=== PATIENT | female | born 1975 | race Caucasian/White ===

== ENCOUNTER → 2020-11-19 00:24 | Outpatient (CLI) | payer BC, SELFPAY ==
[2020-11-19 19:28] LABS: SARS-CoV-2 RNA PCR Negative
== END ==
PROVIDERS: Visit Provider Obstetrics & Gynecology
DX: Z01.812 Encounter for preprocedural laboratory examination (principal); Z20.822 Contact with and (suspected) exposure to COVID-19
CPT/HCPCS: C9803; U0003; U0005

== ENCOUNTER 2020-11-22 01:47 | Day surgery (SDC) | payer BC, SELFPAY ==
[2020-11-12 10:50] VITALS: BMI 29.9
[2020-11-22] VITALS (7 sets, daily range): BP systolic 111–150; BP diastolic 73–83; PULSE 62–84; RESP 12–16; TEMP 35.9–36.7; O2SAT 98–100
--- NOTE | 2020-11-22 07:00 | WPDANESEPP ---
Anes - Eval Pre Procedure Procedure: Operation Date: 11/22/20 08:30 Proposed Procedures p Trans Obturator Taping With Possible Anterior Repair - Stephan Cardozo MD Date/Time: 11/22/20 07:00 Pre Op Diagnosis: stress incontinence Patient Data Age: 45 Gender: F Height: 5 ft 5 in Weight: 81.6 kg Allergies Allergy/AdvReac Type Severity Reaction Status Date / Time Penicillins Allergy Unknown Unknown Verified 11/22/20 06:59 Home Medications Medication Instructions Recorded Confirmed Type cholecalciferol (vitamin D3) 75 mcg PO DAILY 11/12/20 11/12/20 History [Vitamin D3] Patient hx anesthesia problems: none Family hx anesthesia problems: none PMFSH Past Medical History Medical History Cubital tunnel syndrome of both upper extremities GERD (gastroesophageal reflux disease) RIVERA (stress urinary incontinence, female) Family History Family History Sibling Family history of hypothyroidism Social History Social History Smoking status: Never smoker Alcohol intake: current Drinks per week: 4 Substance use: never Substance use type: does not use Living arrangements: with family Spiritual care concerns: Yes (NO BLOOD PRODUCTS) Exam Day of Procedure 11/22/20 07:00 Patient weight: overweight Heart: regular rate and rhythm Lungs: clear to auscultation Airway: Mallampati scale class II Neurological: alert and oriented
[2020-11-22] MEDS: ACETAMINOPHEN 500 MG TABLET 1000 MG PO (07:20)
[2020-11-22] MEDS: KETOROLAC 15 MG/ML VIAL (*BKC) IV PUSH (07:20)
[2020-11-22] MEDS: LACTATED RINGERS 1,000 ML 30 ML IV CONT ×2 (07:20→10:40)
--- NOTE | 2020-11-22 07:36 | PM.HPGS ---
History of Present Illness History of Present Illness Consent: Risks, benefits, and alternatives have been discussed and questions answered. Patient agrees to proceed with procedure. Chief complaint: stress incontinence Narrative: Leeanne Tse is a 45 year old female presented to the office with complaints of leaking urine with activities and coughing. Patient reports this has worsened over the years. Review of Systems Genitourinary: Genitourinary: Reports no additional female genitourinary complaints Musculoskeletal: Musculoskeletal: Reports arthralgias PMFSH Past Medical History Medical History (Updated 11/22/20 @ 07:43 by Stephan Cardozo MD) Cubital tunnel syndrome of both upper extremities GERD (gastroesophageal reflux disease) RIVERA (stress urinary incontinence, female) Surgical History Surgical History (Updated 11/22/20 @ 07:41 by Stephan Cardozo MD) S/P hysterectomy Family History Family History Sibling Family history of hypothyroidism Social History Social History Smoking status: Never smoker Alcohol intake: current Drinks per week: 4 Substance use: never Substance use type: does not use Living arrangements: with family Spiritual care concerns: Yes (NO BLOOD PRODUCTS) Meds Home Medications and Allergies Home Medications Medication Instructions Recorded Confirmed Type cholecalciferol (vitamin D3) 75 mcg PO DAILY 11/12/20 11/12/20 History [Vitamin D3] Allergies Allergy/AdvReac Type Severity Reaction Status Date / Time Penicillins Allergy Unknown Unknown Verified 11/22/20 06:59 Exam Const: General: healthy appearing Orientation/consciousness: patient oriented x3 Resp: Effort & Inspection: normal respiratory effort Auscultation: clear to auscultation bilaterally Cardio: Rate: regular rate Rhythm: regular rhythm GI: GI Palp: Yes Soft to palpation : Speculum Exam - Vagina: normal appearance of the vagina Bimanual exam- vagina & uterus: uterus absent Assessment and Plan Assessment and plan (1) RIVERA (stress urinary incontinence, female): Code(s): N39.3 - Stress incontinence (female) (male) Status: Acute Assessment and Plan: Patient scheduled for a Transobturator taping with cystoscopy with possible anterior repair. Risk and benefits reveiwed with patient in detail including bleeding, infection, trauma, anesthesia, mesh erosion and pain. Patient agrees to proceed with surgery.
--- NOTE | 2020-11-22 07:37 | WPDANESEPPF ---
Anes - Initial Pre Proc Eval Procedure: Operation Date: 11/22/20 08:30 Proposed Procedures p Trans Obturator Taping With Possible Anterior Repair - Stephan Cardozo MD Date/Time: 11/22/20 07:37 Surgeon: Stephan Cardozo MD Pre Op Diagnosis: stress incontinence Patient Data Age: 45 Gender: F Height: 5 ft 5 in Weight: 81.6 kg Allergies Allergy/AdvReac Type Severity Reaction Status Date / Time Penicillins Allergy Unknown Unknown Verified 11/22/20 06:59 Home Medications Medication Instructions Recorded Confirmed Type cholecalciferol (vitamin D3) 75 mcg PO DAILY 11/12/20 11/12/20 History [Vitamin D3] Patient hx anesthesia problems: none Family hx anesthesia problems: none PMFSH Past Medical History Medical History Cubital tunnel syndrome of both upper extremities GERD (gastroesophageal reflux disease) RIVERA (stress urinary incontinence, female) Family History Family History Sibling Family history of hypothyroidism Social History Social History Smoking status: Never smoker Alcohol intake: current Drinks per week: 4 Substance use: never Substance use type: does not use Living arrangements: with family Spiritual care concerns: Yes (NO BLOOD PRODUCTS) Anes - Eval Final PreProcedure Day of Procedure 11/22/20 07:37 Patient weight: overweight Heart: regular rate and rhythm Lungs: clear to auscultation Airway: Mallampati scale class II Neurological: alert and oriented Last oral intake: >/= 8 hours ASA classification: II Emergent: no Anesthetic plan: proceed Anesthesia type and monitoring: general LMA and standard monitoring Informed Consent: The patient's anesthetic plan and its attendant risks and benefits were discussed with the patient/family/POA. Questions were solicited and answers provided to the satisfaction of the patient/family/POA.
--- NOTE | 2020-11-22 07:50 | WPDHPUPDATE1 ---
History and Physical Update Update Date/Time: 11/22/20 07:50 History and Physical has been reviewed, including an updated exam of the patient. There are NO changes in the patient's condition. Risks, benefits, and alternatives have been discussed and questions answered. Patient agrees to proceed with procedure.
[2020-11-22] MEDS: ceFAZolin 2 GM/D5W 50 ML 2 GM/50 ML BAG IVPB (08:08)
[2020-11-22] MEDS: LIDO 1%/EPINEPHRINE 1:100,000 50 ML VIAL INFILTRATE (08:28)
--- NOTE | 2020-11-22 09:38 | SUR.PHASEI ---
Called Dr. Cardozo on her cell phone to address some questions in relation to discharge.
--- NOTE | 2020-11-22 09:51 | SUR.PHASEI ---
CORY paged Dr. Cardozo via pager.
[2020-11-22] MEDS: oxyCODONE HCL (*CRX) 5 MG TAB IR PO (10:38)
--- NOTE | 2020-11-23 08:07 | PM.PROC ---
Procedure Note - Detailed Date of procedure: 11/22/20 Pre-op diagnosis: stress incontinence Cystocele Post-op diagnosis: same Procedure performed: Anterior repair with Transobturator taping with Cystocele Description of procedure: .Patient was taken to the operating room and placed in a dorsal lithotomy position. The patient was prepared and draped in a normal sterile fashion. Volar plaster Benitez catheter was placed into the bladder and the bladder was drained for 100cc. A solution of 1% lidocaine with epinephrine was in the trade on the anterior vaginal mucosa midline a small incision was made and the vaginal mucosa at the vaginal vault. Then the Metzenbaum scissors were then used to the rectum because of the thick cystocele and cut the vaginal mucosa in the midline the cut edges were held and splayed laterally with a series of Allis clamps. The bladder was dissected away along the lateral edges with the combination of short and blunt dissection exposing the vesicle vaginal space a series of 2 Ethibond suture interrupted were then placed sequentially along the lateral poles of the vesicle vaginal space and brought together to tuck the bladder back while simultaneously bringing the lateral vaginal tissue is to get a the excess vaginal mucosa was then trimmed and the vaginal Gyne was then closed with a running lock of 2 0 Vicryl suture. attention was then turned to the bladder sling and which 2 Allis clamps were placed along the anterior vaginal wall beginning 1cm below the urethra and 3cm apart vertically a 2cm incision was made between Allis clamps on anterior vaginal mucosa in the periurethral tissue was dissected with the Metzenbaum scissors and blunt dissection to the level of the pubic bone on either side the midline. The obturator foramen on the right portions of the vagina well palpated bilaterally and injected with 1% lidocaine with epinephrine. And marked with a sterile marker. Stab incision was made in both areas. The obturator device hook was then introduced through the outer obturator foramen through the membrane entering alongside the bladder and urethra pushing the bladder and urethra out of the way and exiting through the vagina. The same procedure occurred on the left side. Cystoscope was performed with the 70 degree scope and the bladder dome was noted the posterior portion of the bladder with no visual suture noted. the obturator devices were manipulated and no areas of punctation were noted in the bladder ritter bilaterally. And there were bilateral ureteral jets noted with an intact urethra. The cystoscope was removed. The vaginal taping was attached to the obturator removed and pulled through under proper tension with spacing with Riley scissors. the vaginal mucosa was then closed with 2 0 Vicryl suture in a running locked fashion. The stab wound incisions were covered with surgical glue. The vagina was packed Anesthesia: GLMA Surgeon: Stephan Cardozo MD Estimated blood loss (mL): 75 Urine output (mL): 100 Drains: No Packing: Yes Condition: stable Disposition: PACU Findings: bilateral ureter jets.
== END 2020-11-22 11:25 | disposition home or self-care (01) ==
PROVIDERS: Visit Provider Obstetrics & Gynecology
PROC: (CPT 57288; principal; 2020-11-22 08:30)
DX: N39.3 Stress incontinence (female) (male) (principal); N81.10 Cystocele, unspecified
CPT/HCPCS: 57288; 57240; A9270; C1771; C9803; J0690; J1100; J1170; J1885; J2250; J2405; J2704; J3010; J7030; J7120; U0003; U0005

== ENCOUNTER 2020-11-30 01:28 | Day surgery (SDC) | payer BC, SELFPAY ==
[2020-11-29 18:37] VITALS: BMI 29.0
[2020-11-29 19:03] VITALS: BMI 29.0
--- NOTE | ~2020-11-30 | US_ITS ---
EXAMINATION: US venous doppler [facility] DATE: 11/30/2020 16:14 INDICATION: Left lower limb pain and swelling. TECHNIQUE: Grayscale ultrasound images without and with compression and Doppler ultrasound images of the left lower extremity veins were obtained. COMPARISON: None. FINDINGS: The visualized portions of left common femoral vein, profunda (deep) femoral vein, femoral vein, popl iteal vein, peroneal veins, posterior tibial veins, and greater saphenous vein outflow are patent. IMPRESSION: 1. No deep venous thrombosis. Reviewed, dictated and finalized at location A.
--- NOTE | 2020-11-30 08:59 | P.HP_ITS ---
History of Present Illness History of Present Illness Consent: Risks, benefits, and alternatives have been discussed and questions answered. Patient agrees to proceed with procedure. Chief complaint: urinary retention Narrative: Leeanne Tse is a 45 year old female underwent surgery for urinary incontinece on 11/22/20. Patient reports was able to void after sling bu retention worsened. catheter placed that afternoon and left in for 2 days. Catheter removed and allowed to void on thursday. Patient called Thursday and said return of retention(1600 cc) of urine in bladder drained on Thursday. FORMERLY [facility], [facility]–1983 Past Medical History Medical History Cubital tunnel syndrome of both upper extremities GERD (gastroesophageal reflux disease) RIVERA (stress urinary incontinence, female) Surgical History Surgical History S/P hysterectomy Family History Family History Sibling Family history of hypothyroidism Social History Social History Smoking status: Never smoker Alcohol intake: current Drinks per week: 4 Substance use: never Substance use type: does not use Living arrangements: alone Spiritual care concerns: Yes (NO BLOOD PRODUCTS) Meds Home Medications and Allergies Home Medications Medication Instructions Recorded Confirmed Type cholecalciferol (vitamin D3) 75 mcg PO DAILY 11/12/20 11/29/20 History [Vitamin D3] hydrocodone-acetaminophen 1 tablet PO Q4-6H PRN #10 tablet 11/22/20 11/29/20 Rx Allergies Allergy/AdvReac Type Severity Reaction Status Date / Time Penicillins Allergy Unknown Unknown Verified 11/29/20 18:44 Exam Const: Nutritional Appearance: obese GI: Inspection: normal to inspection : Other: suture present in vagina intact Urinary Catheter: Urinary Catheter: patent and draining and urine cloudy Assessment and Plan Assessment and plan (1) Postprocedural urinary retention: Code(s): N99.89 - Other postprocedural complications and disorders of genitourinary system; R33.8 - Other retention of urine Status: Acute Assessment and Plan: Plan to reduce tension on sling.
--- NOTE | 2020-11-30 13:07 | WPDHPUPDATE1 ---
History and Physical Update Update Date/Time: 11/30/20 13:07 History and Physical has been reviewed, including an updated exam of the patient. There are NO changes in the patient's condition. Risks, benefits, and alternatives have been discussed and questions answered. Patient agrees to proceed with procedure.
--- NOTE | 2020-11-30 13:32 | WPDANESEPPF ---
Anes - Initial Pre Proc Eval Procedure: Operation Date: 11/30/20 15:15 Proposed Procedures p Release Tension Of Urethral Sling - Stephan Cardozo MD Date/Time: 11/30/20 13:32 Surgeon: Stephan Cardozo MD Pre Op Diagnosis: urinary retention Patient Data Age: 45 Gender: F Height: 5 ft 5 in Weight: 79.3 kg Allergies Allergy/AdvReac Type Severity Reaction Status Date / Time Penicillins Allergy Unknown Unknown Verified 11/29/20 18:44 Home Medications Medication Instructions Recorded Confirmed Type cholecalciferol (vitamin D3) 75 mcg PO DAILY 11/12/20 11/29/20 History [Vitamin D3] hydrocodone-acetaminophen 1 tablet PO Q4-6H PRN #10 tablet 11/22/20 11/29/20 Rx Patient hx anesthesia problems: none Family hx anesthesia problems: none PMFSH Past Medical History Medical History Cubital tunnel syndrome of both upper extremities GERD (gastroesophageal reflux disease) Postprocedural urinary retention RIVERA (stress urinary incontinence, female) Surgical History Surgical History S/P hysterectomy Family History Family History Sibling Family history of hypothyroidism Social History Social History Smoking status: Never smoker Alcohol intake: current Drinks per week: 4 Substance use: never Substance use type: does not use Living arrangements: alone Spiritual care concerns: Yes (NO BLOOD PRODUCTS) Anes - Eval Final PreProcedure Day of Procedure 11/30/20 13:32 Patient weight: overweight Heart: regular rate and rhythm Lungs: clear to auscultation Airway: Mallampati scale class II Neurological: alert and oriented Last oral intake: >/= 8 hours ASA classification: II Emergent: no Anesthetic plan: proceed Anesthesia type and monitoring: general GIVS and standard monitoring Informed Consent: The patient's anesthetic plan and its attendant risks and benefits were discussed with the patient/family/POA. Questions were solicited and answers provided to the satisfaction of the patient/family/POA.
[2020-11-30 13:50] VITALS: BP 134/79; PULSE 91; RESP 16; TEMP 37.2; O2SAT 100
[2020-11-30] MEDS: ceFAZolin 2 GM/D5W 50 ML 2 GM/50 ML BAG IVPB (13:57)
[2020-11-30] MEDS: GENTAMICIN SULFATE INJ 335 MG in DEXTROSE 5% 100 ML 100 MG IVPB (14:19)
[2020-11-30 14:31] VITALS: BP 113/76; PULSE 72; RESP 16; O2SAT 100
[2020-11-30] MEDS: LACTATED RINGERS 1,000 ML 30 ML IV CONT ×2 (14:31→15:20)
--- NOTE | 2020-11-30 14:33 | PM.PROC ---
Procedure Note - Detailed Date of procedure: 11/30/20 Pre-op diagnosis: urinary retention Post-op diagnosis: same Procedure performed: release of tension on transobturator sling. Description of procedure: The patient was taken to the operating room with IV running and prepped and draped in a normal sterile fashion. She was placed in the dorsal lithotomy position a Benitez catheter was placed in the bladder. 5cc of local was placed in the right and left Zoila of the urethra. The suture from prior procedure was cut with scissors the vaginal mucosa was grasped with Allis clamps. A small PI was used to release the sling by introducing it behind the sling and releasing dissection. A Riley scissor was used for spacing to confirm. The vaginal mucosa was then closed with 2 0 Vicryl suture. A Benitez catheter was removed. Sponge lap and needle counts were correct x2 patient tolerated this procedure well was taken to recovery condition. Anesthesia: MAC and local Surgeon: Stephan Cardozo MD Estimated blood loss (mL): 20 Urine output (mL): 50 Drains: No Packing: No Pathology: none sent Complications: None Disposition: PACU
[2020-11-30] MEDS: oxyCODONE HCL (*CRX) 5 MG TAB IR PO (14:59)
[2020-11-30 15:00] VITALS: BP 119/89; PULSE 66
[2020-11-30 15:30] VITALS: BP 125/91; PULSE 71
--- NOTE | 2020-11-30 15:51 | SUR.PHASEII ---
Patient left outpatient area and went to ultrasound for doppler of left leg.
[2020-11-30 16:00] VITALS: BP 132/86; PULSE 64
--- NOTE | 2020-11-30 16:06 | SUR.PHASEII ---
Patient came back from ultrasound about 1605.
== END 2020-11-30 16:28 | disposition home or self-care (01) ==
PROVIDERS: Visit Provider Obstetrics & Gynecology
PROC: (CPT 57287; principal; 2020-11-30 15:15)
DX: N99.89 Other postprocedural complications and disorders of genitourinary system (principal); R33.8 Other retention of urine; Y83.8 Other surgical procedures as the cause of abnormal reaction of the patient, or of later complication, without mention of misadventure at the time of the procedure; M79.662 Pain in left lower leg; M79.89 Other specified soft tissue disorders; K21.9 Gastro-esophageal reflux disease without esophagitis; G56.23 Lesion of ulnar nerve, bilateral upper limbs
CPT/HCPCS: 57287; 93971; A9270; J0690; J1580; J2250; J2704; J3010; J7030; J7120

== ENCOUNTER → 2021-01-18 09:48 | Outpatient (CLI) | payer BC, SELFPAY ==
--- NOTE | ~2021-01-18 | MM_ITS ---
EXAMINATION: MM screening fany BI w laura HISTORY: Screening TECHNIQUE: Craniocaudal and mediolateral oblique 3-D tomosynthesis images were obtained and synthetic 2-D images were generated. CAD analysis was submitted and interpreted. COMPARISON: Comparison to multiple prior studies sequentially, with oldest reviewed study dated 07/17. BREAST PARENCHYMAL COMPOSITION: There are scattered areas of fibroglandular density. FINDINGS: Stable benign-appearing bilateral breast masses. There is no evidence of suspicious mass, c alcification, or architectural distortion to suggest malignancy in either breast. There has been no s uspicious interval change. IMPRESSION: 1. No mammographic evidence of malignancy. 2. Recommend routine screening mammography in one year. BI-RADS Category 2: Benign finding(s). Reviewed, dictated and finalized at location A.
== END ==
PROVIDERS: Visit Provider Obstetrics & Gynecology
DX: Z12.31 Encounter for screening mammogram for malignant neoplasm of breast (principal)
CPT/HCPCS: 77063; 77067

== ENCOUNTER 2021-08-05 10:26 | Emergency (ER) | payer BC, SELFPAY ==
[2021-08-05 10:36] VITALS: BP 138/92; PULSE 87; RESP 87; TEMP 36.6; O2SAT 99
--- NOTE | 2021-08-05 10:54 | ED.SKABFB ---
HPI - Skin/Abscess/Foreign Bdy General Chief complaint: Skin/Abscess/Foreign Body Stated complaint: Rash Time Seen by Provider: 08/05/21 10:54 Source: patient and RN notes reviewed Mode of arrival: ambulatory Limitations: no limitations History of Present Illness HPI narrative: 38-year-old female presents with concern for painful, itchy rash to her left back. Reports symptoms for approximately 2 days. In an unrelated complaint, she reports sinus drainage and right ear pain, right sinus tenderness. She reports symptoms are worse in the morning and improves throughout the day. Reports she had sinus problems 2 weeks ago which mostly resolved except for the continued drainage and pain on the right side. She denies fever, body aches, chills, sweats. MD complaint: rash Related Data Home Medications Medication Instructions Recorded Confirmed liraglutide (weight loss) [Saxenda] 3 mg SUBCUT DAILY 08/05/21 08/05/21 Allergies Allergy/AdvReac Type Severity Reaction Status Date / Time Penicillins Allergy Intermediate Rash Verified 08/05/21 10:59 Review of Systems Review of Systems: CONSTITUTIONAL: Denies malaise, chills, sweats, or fever. EYES: Denies visual changes, redness, or discharge. ENT: Reports right-sided rhinorrhea, congestion, sinus pain, otalgia CARDIOVASCULAR: Denies chest pain, palpitations, or edema. RESPIRATORY: Denies cough or dyspnea. SKIN: Painful itchy rash on the left back MUSCULOSKELETAL: Denies myalgia. NEUROLOGIC: Denies numbness, weakness, or headache. All systems reviewed & are unremarkable except as noted in HPI and below PMFSH Past Medical History Medical History Cubital tunnel syndrome of both upper extremities GERD (gastroesophageal reflux disease) Postprocedural urinary retention RIVERA (stress urinary incontinence, female) Surgical History Surgical History S/P hysterectomy Family History Family History Sibling Family history of hypothyroidism Social History Social History Smoking status: Never smoker Alcohol intake: current Drinks per week: 4 Substance use: never Substance use type: does not use Spiritual care concerns: Yes (NO BLOOD PRODUCTS) Comments At time of signature, agree with nursing past medical, surgical, social and family history. There is no relevant family history pertinent to the presenting complaint Exam Narrative: GENERAL: Well-appearing, well-nourished, and in no acute distress. HEAD: Normocephalic, atraumatic. EYES: PERRLA, conjunctivae clear, and EOMI. ENT: Mucous membranes moist. Oropharynx without edema, erythema or lesions. TM pearly khoury with shiny light reflex NECK: Supple. No lymphadenopathy CHEST: Clear to auscultation. No respiratory distress. HEART: Regular rate and rhythm. SKIN: Warm, dry. Zosteriform rash noted to the left back NEURO: Alert and oriented x3. PSYCH: Normal mood and affect Course Course Emergency Course: Patient is aware of diagnosis, understands and agrees to treatment plan. Anticipatory guidance given. Patient agrees to follow-up as directed and is aware of reasons to seek care at the emergency department. Portions of this record may have been created with voice recognition software Vital Signs Vital signs: Vital Signs Temperature 97.9 F 08/05/21 10:36 Pulse Rate 87 08/05/21 10:36 Respiratory Rate 87 H 08/05/21 10:36 Blood Pressure 138/92 H 08/05/21 10:36 Pulse Oximetry 99 08/05/21 10:36 Temperature 97.9 F 08/05/21 10:36 Pulse Rate 87 08/05/21 10:36 Respiratory Rate 87 H 08/05/21 10:36 Blood Pressure 138/92 H 08/05/21 10:36 Pulse Oximetry 99 08/05/21 10:36 Reviewed. Patient has been instructed to follow up with her primary care provider within the next
== END 2021-08-05 11:10 | disposition home or self-care (01) ==
PROVIDERS: Emergency Provider Nurse Practitioner
DX: B02.9 Zoster without complications (principal); J01.10 Acute frontal sinusitis, unspecified; K21.9 Gastro-esophageal reflux disease without esophagitis
CPT/HCPCS: 99213; G0463

== ENCOUNTER 2021-09-05 10:41 | Emergency (ER) | payer BC, SELFPAY ==
[2021-09-05 10:50] VITALS: BP 138/95; PULSE 99; RESP 16; TEMP 36.6; O2SAT 99
--- NOTE | 2021-09-05 12:29 | ED.URI ---
HPI - URI/Sore Throat General Chief Complaint: Upper Respiratory Infection Stated Complaint: sinus infection Time Seen by Provider: 09/05/21 12:10 Source: patient and RN notes reviewed Mode of arrival: ambulatory Limitations: no limitations History of Present Illness HPI Narrative: Patient presents today complaining of a 4-day history of sore throat, cough, congestion, fatigue. Reports multiple sick contacts of COVID-19 1 to 2 weeks ago. She currently rates her pain 5/10 and has been taking Mucinex and Claritin with ibuprofen without much relief. She has been vaccinated against COVID-19. MD elicited complaint: cough, sore throat and nasal congestion Related Data Home Medications Medication Instructions Recorded Confirmed liraglutide (weight loss) [Saxenda] 3 mg SUBCUT DAILY 08/05/21 09/05/21 Allergies Allergy/AdvReac Type Severity Reaction Status Date / Time Penicillins Allergy Intermediate Rash Verified 09/05/21 12:06 Review of Systems Review of Systems: CONSTITUTIONAL: Denies body aches, fever, chills, or sweats.+ Fatigue EYES: Denies visual changes, redness, or discharge. ENT: Denies rhinorrhea, or otalgia.+ Congestion, sore throat CARDIOVASCULAR: Denies chest pain, palpitations, or edema. RESPIRATORY: Denies dyspnea.+ Cough GASTROINTESTINAL: Denies abdominal pain, nausea, vomiting, or diarrhea. GENITOURINARY: Denies dysuria or hematuria. SKIN: Denies rash, itching, or wounds. MUSCULOSKELETAL: Denies back pain, joint pain, or myalgia. NEUROLOGIC: Denies headache, numbness, tingling, or weakness. PSYCH: Denies depression or anxiety. [facility] Past Medical History Medical History Cubital tunnel syndrome of both upper extremities GERD (gastroesophageal reflux disease) Postprocedural urinary retention RIVERA (stress urinary incontinence, female) Surgical History Surgical History S/P hysterectomy Family History Family History Sibling Family history of hypothyroidism Social History Social History Smoking status: Never smoker Alcohol intake: current Drinks per week: 4 Substance use: never Substance use type: does not use Spiritual care concerns: Yes (NO BLOOD PRODUCTS) Comments At time of signature, I have reviewed and agree with nursing past medical, surgical, social and family history unless otherwise noted. Please see nursing chart for further information. There is no relevant family history pertinent to the presenting complaint Exam Narrative: GENERAL: Well-appearing, well-nourished, and in no acute distress. HEAD: Normocephalic, atraumatic. EYES: EOMI. No redness or drainage. Conjunctivae normal. ENT: Mucous membranes pink and moist. Nares congested. No rhinorrhea. Bilateral swollen and erythematous nasal turbinates. TMs normal bilaterally. Throat normal. Uvula midline. NECK: Normal AROM. Supple. No lymphadenopathy. CHEST: No respiratory distress. Clear to auscultation. HEART: Regular rate and rhythm. No murmur appreciated. Normal peripheral pulses. EXTREMITIES: Normal range of motion. No edema. SKIN: Warm, dry, no rash. Capillary refill normal. Normal skin turgor. NEURO: No focal deficits. Alert and oriented x3. Gait steady. PSYCH: Normal affect. No signs of depression or anxiety. Course Course Level of Care: Express Care Visit Vital Signs Vital signs: Vital Signs Temperature 97.8 F 09/05/21 10:50 Pulse Rate 99 09/05/21 10:50 Respiratory Rate 16 09/05/21 10:50 Blood Pressure 138/95 H 09/05/21 10:50 Pulse Oximetry 99 09/05/21 10:50 Temperature 97.8 F 09/05/21 10:50 Pulse Rate 99 09/05/21 10:50 Respiratory Rate 16 09/05/21 10:50 Blood Pressure 138/95 H 09/05/21 10:50 Pulse Oximetry 99 09/05/21 10:50
[2021-09-06 21:55] LABS: SARS-CoV-2 RNA PCR Negative
== END 2021-09-05 12:40 | disposition home or self-care (01) ==
PROVIDERS: Emergency Provider Nurse Practitioner
DX: J06.9 Acute upper respiratory infection, unspecified (principal); Z20.822 Contact with and (suspected) exposure to COVID-19; K21.9 Gastro-esophageal reflux disease without esophagitis
CPT/HCPCS: 87426; 99213; C9803; G0463; U0003; U0005

== ENCOUNTER 2021-12-10 01:16 | Day surgery (SDC) | payer BC, SELFPAY ==
[2021-11-21 15:27] VITALS: BMI 28.6
[2021-12-10 08:14] VITALS: BP 133/84; PULSE 83; RESP 18; TEMP 36.2; O2SAT 99; BMI 29.0
[2021-12-10] MEDS: LACTATED RINGERS 1,000 ML 150 ML IV CONT (08:22)
--- NOTE | 2021-12-10 08:58 | P.CONGI_ITS ---
Assessment and Plan Assessment and plan (1) Encounter for screening colonoscopy: Code(s): Z12.11 - Encounter for screening for malignant neoplasm of colon Status: Acute Assessment and Plan: Patient presents today for screening colonoscopy. Further recommendations will be given after endoscopy. GI Consult Note Consult date/time: 12/10/21 08:58 HPI: Leeanne Tse is a 46 year old female Presents for screening colonoscopy. Patient's current weight appetite and bowel movements are normal. She denies abdominal pain. She has had no bleeding. Family history is Significant her sister was found to have a colon polyp recently. Patient presents today for neoplasia screening. Review of Systems Review of Systems: All systems reviewed & are unremarkable except as noted in HPI and below PMFSH Past Medical History Medical History Cubital tunnel syndrome of both upper extremities GERD (gastroesophageal reflux disease) Postprocedural urinary retention RIVERA (stress urinary incontinence, female) Surgical History Surgical History S/P hysterectomy Family History Family History Sibling Family history of hypothyroidism Social History Social History Smoking status: Never smoker Alcohol intake: current Drinks per week: 4 Alcohol use details: Socially Substance use: never Substance use type: does not use Living arrangements: with family Spiritual care concerns: Yes (NO BLOOD PRODUCTS) Meds Home Medications and Allergies Home Medications Medication Instructions Recorded Confirmed Type liraglutide (weight loss) [Saxenda] 3 mg SUBCUT DAILY 08/05/21 11/21/21 History Allergies Allergy/AdvReac Type Severity Reaction Status Date / Time Penicillins Allergy Intermediate Rash Verified 12/10/21 08:13 Vital Signs Vital Signs - 24 hr 12/10/21 08:14 Temperature 97.1 F L Pulse Rate 83 Respiratory Rate 18 Blood Pressure 133/84 Pulse Oximetry 99 Exam Narrative: Physical exam reveals patient to be alert. Vital signs stable. HEENT exam is unremarkable. Patient is anicteric. Lungs are clear to auscultation and percussion. Heart is without murmur or extra sounds. Abdominal exam bowel sounds present soft nontender with no organomegaly. Digital external rectal exam is normal.
--- NOTE | 2021-12-10 09:07 | P.PNAN_ITS ---
Anes - Initial Pre Proc Eval Procedure: Operation Date: 12/10/21 09:30 Proposed Procedures p Screening Colonoscopy - Xu Pat MD Date/Time: 12/10/21 09:07 Surgeon: Xu Pat MD Pre Op Diagnosis: neoplasm screening Patient Data Age: 46 Gender: F Height: 1.65 m Weight: 79.3 kg Last Vital Signs Temp 97.1 F L 12/10/21 08:14 Pulse 83 12/10/21 08:14 Resp 18 12/10/21 08:14 BP 133/84 12/10/21 08:14 Pulse Ox 99 12/10/21 08:14 Allergies Allergy/AdvReac Type Severity Reaction Status Date / Time Penicillins Allergy Intermediate Rash Verified 12/10/21 08:13 Home Medications Medication Instructions Recorded Confirmed Type liraglutide (weight loss) [Saxenda] 3 mg SUBCUT DAILY 08/05/21 11/21/21 History Patient hx anesthesia problems: none Family hx anesthesia problems: none Results Review: All pre-operative results and documents have been reviewed as part of the pre-operative evaluation. [facility] Past Medical History Medical History Cubital tunnel syndrome of both upper extremities GERD (gastroesophageal reflux disease) Postprocedural urinary retention RIVERA (stress urinary incontinence, female) Surgical History Surgical History S/P hysterectomy Family History Family History Sibling Family history of hypothyroidism Social History Social History Smoking status: Never smoker Alcohol intake: current Drinks per week: 4 Alcohol use details: Socially Substance use: never Substance use type: does not use Living arrangements: with family Spiritual care concerns: Yes (NO BLOOD PRODUCTS) Anes - Eval Final PreProcedure Day of Procedure 12/10/21 09:07 Patient weight: overweight Heart: regular rate and rhythm Lungs: clear to auscultation Airway: Mallampati scale Neurological: alert and oriented Last oral intake: >/= 8 hours ASA classification: II Emergent: no Anesthetic plan: proceed Anesthesia type and monitoring: general GIVS and standard monitoring Results Review: All pre-operative results and documents have been reviewed as part of the pre-operative evaluation. Informed Consent: The patient's anesthetic plan and its attendant risks and benefits were discussed with the patient/family/POA. Questions were solicited and answers provided to the satisfaction of the patient/family/POA.
[2021-12-10 10:12] VITALS: BP 115/77; PULSE 79; RESP 17; O2SAT 100
[2021-12-10 10:22] VITALS: BP 123/81; PULSE 68; RESP 19; O2SAT 100
[2021-12-10 10:32] VITALS: BP 123/72; PULSE 63; RESP 19; O2SAT 100
== END 2021-12-10 10:42 | disposition home or self-care (01) ==
PROVIDERS: Visit Provider Internal Medicine Gastroenterology
PROC: 0DJD8ZZ Inspection of Lower Intestinal Tract, Via Natural or Artificial Opening Endoscopic (ICD-10-PCS; CPT 45378; principal; 2021-12-10 09:30)
DX: Z12.11 Encounter for screening for malignant neoplasm of colon (principal); K64.8 Other hemorrhoids; K57.30 Diverticulosis of large intestine without perforation or abscess without bleeding
CPT/HCPCS: 45378; J2704; J7120

== ENCOUNTER 2022-02-20 08:50 | Outpatient (CLI) | payer BC, SELFPAY ==
--- NOTE | 2022-02-20 11:30 | NEURO_ITS ---
Impression: # Complains of numbness in right hand. # Subtle evolving Carpal Tunnel Syndrome. # Proximal median nerve slowing compared to ulnar nerve. # Needle/EMG exam not requested. # Clinical correlation recommended. Nerve Conduction Studies Anti Sensory Summary Table Stim Site NR Peak (ms) P-T Amp (?V) Site1 Site2 Delta-P (ms) Dist (cm) Ezekiel (m/s) Right Median Anti Sensory (2-3nd Digit) Wrist 3.4 45.8 Wrist 2-3nd Digit 3.4 14.0 41 Wrist 3.5 59.0 Wrist 2-3nd Digit 3.4 14.0 41 Right Radial Anti Sensory (Base 1st Digit) Wrist 2.3 36.9 Wrist Base 1st Digit 2.3 0.0 Right Ulnar Anti Sensory (5th Digit) Wrist 2.0 70.8 Wrist 5th Digit 2.0 14.0 70 Motor Summary Table Stim Site NR Onset (ms) O-P Amp (mV) Site1 Site2 Delta-0 (ms) Dist (cm) Ezekiel (m/s) Right Median Motor (Abd Poll Brev) Wrist 3.0 6.3 Elbow Wrist 5.8 27.0 47 Elbow 8.8 4.5 Right Ulnar Motor (Abd Dig Minimi) Wrist 2.1 6.8 A Elbow Wrist 4.9 28.0 57 A Elbow 7.0 6.3 F Wave Studies NR F-Lat (ms) L-R F-Lat (ms) Right Median (Mrkrs) (Abd Poll Brev) 27.03 Right Ulnar (Mrkrs) (Abd Dig Min) 25.63 MTDD
== END 2022-02-20 08:51 | disposition home or self-care (01) ==
LOC: ANHNEURO 08:52
PROVIDERS: Visit Provider Plastic Surgery
DX: R20.2 Paresthesia of skin (principal); R94.131 Abnormal electromyogram [EMG]
CPT/HCPCS: 95909

== ENCOUNTER → 2022-06-16 10:43 | Outpatient (CLI) | payer BC, SELFPAY ==
--- NOTE | ~2022-06-16 | MM_ITS ---
EXAMINATION: MM screening fany BI w laura HISTORY: Screening TECHNIQUE: Craniocaudal and mediolateral oblique 3-D tomosynthesis images were obtained and synthetic 2-D images were generated. CAD analysis was submitted and interpreted. COMPARISON: Comparison to multiple prior studies sequentially, with oldest reviewed study dated 10/2013. BREAST PARENCHYMAL COMPOSITION: Breast composed of scattered areas of fibroglandular density FINDINGS: There is no evidence of suspicious mass, calcification, or architectural distortion to sugg est malignancy in either breast. There has been no suspicious interval change. IMPRESSION: 1. No mammographic evidence of malignancy. 2. Recommend routine screening mammography in one year. BI-RADS Category 1: Negative Reviewed, dictated and finalized at location A.
== END ==
PROVIDERS: PCP Obstetrics & Gynecology Gynecology; Visit Provider Obstetrics & Gynecology Gynecology
DX: Z12.31 Encounter for screening mammogram for malignant neoplasm of breast (principal)
CPT/HCPCS: 77063; 77067

== ENCOUNTER 2022-06-26 15:30 | Outpatient (RCR) | payer BC, SELFPAY ==
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
--- NOTE | 2022-06-26 15:58 | PTOPPROG ---
Assessment and note entered by Shamika Yusuf, PT Evaluation Information Assessment Status Progress Diagnosis L hip pain Onset about one year Subjective Information Leeanne reports: L hip pain is annoying, throbbing, stabbing, grabs from side of hip to front of groin; pain range of 1-5/10; pain increase with more activity; avoid rotating hip out because it hurts; wake up 5-6 x/night due to hip hurting; cannot lie on her L hip very long at all-hurts; when getting in/out car, lift her leg with her arm to make it easier; problems putting her shoes and socks on; frustrated with this hip pain; feel like therapy pain treatments help a little, but do not last very long; Assessment PT Clinical Summary Leeanne has received 7 PT sessions. Compared to the initial evaluation: pain rating decreased by 1 number at the low and high ratings; reported sleeping tolerance is the same, and continues to have issues with lifting L leg in/out car and lifting L leg to put on her pants and shoe continues to have pain increase with supine hip flexion, abduction and ER motions; slight increase in strength L leg with single leg standing; Education goals were achieved. Discussed with her she needs to follow up with Dr. SHUKLA PT services. Await further orders if PT is to continue. These treatments will address the objective and functional deficits as defined above. The patient will be advanced safely and appropriately in order for the patient to progress towards his/her prior level of function. Additional exercises will be introduced and as well as a comprehensive home exercise program upon discharge, if needed, ?to ensure carryover of functional gains achieved in the clinic. This treatment plan has been reviewed and agreement upon by the patient.
--- NOTE | 2022-08-08 11:26 | PCPTNOTE ---
DISCHARGE PHYSICAL THERAPY 08-08-22 Attending Provider: Leonard Bethea MD Patient:Leeanne Tse Date of :1975 Further PT orders were not received, since the 06-26-22 reeval report, therefore she will be discharged from PT at this time. Thank you for referring Leeanne to [facility].
== END 2022-08-08 14:17 | disposition home or self-care (01) ==
LOC: ANHPT 15:30
PROVIDERS: Visit Provider Orthopaedic Surgery
DX: M25.552 Pain in left hip (principal); G89.29 Other chronic pain
CPT/HCPCS: 97014; 97110; 97140; 97161; 97530; G0283

== ENCOUNTER 2022-07-21 08:33 | Outpatient (CLI) | payer BC, SELFPAY ==
--- NOTE | ~2022-07-21 | XR_ITS ---
EXAMINATION: XR fl inj hip LT for MR/CT DATE: 07/21/2022 09:48 INDICATION: Left hip pain post injury 3 years prior TECHNIQUE: A time-out was performed to verify the patient's name, date of , and procedure to b e performed. The procedure including the risks, benefits, and alternatives was discussed with the pat ient. Risks discussed included bleeding and infection. The patient understood the risks and agreed to proceed. The skin overlying the left hip joint was prepped and draped in usual sterile fashion. An esthetic was administered with 1% lidocaine subcutaneously. A 22 G needle was advanced under fluoros copic guidance into the joint. Injection of 1 mL of Omnipaque 240 confirmed intra-articular position of the needle. Subsequently, injectate consisting of 12 mL of 2:1:1 mixture of sterile saline:Omnip aque 240:1% lidocaine mixed 200:1 with 529 mg/mL Multihance gadolinium contrast was injected with int ra-articular administration confirmed with intermittent fluoroscopy. The needle was removed and the e ntry site was cleaned and dressed. There were no immediate complications. Fluoroscopy exposure time was 0.1 minutes. The total number of images was 7. FINDINGS: Real-time fluoroscopy demonstrates the needle in the left hip joint. IMPRESSION: 1. Successful left hip joint injection of dilute gadolinium contrast mixture for subsequent MRI arthr ogram which will be dictated separately. Reviewed, dictated and finalized at location A. ING WORKER IMPRESSION: 1. Successful left hip joint injection of dilute gadolinium contrast mixture fo r subsequent MRI arthrogram which will be dictated separately.
--- NOTE | ~2022-07-21 | MR_ITS ---
EXAMINATION: MR hip LT w con DATE: 07/21/2022 10:32 INDICATION: Left hip pain 3 years post injury TECHNIQUE: Magnetic resonance (MR) arthrogram of the left hip was performed following intra-articular gadolinium contrast injection and without intravenous contrast. Details of the hip joint injection h ave been dictated separately. Sequences included small field of view of the left hip with axial and s agittal T1-weighted FS SE and T2-weighted FS FSE and coronal T1-weighted SE and T2-weighted FS FSE. Additional T1-weighted FGRE images in a radial pattern oriented orthogonal to the acetabular rim were obtained for evaluation of the labrum. COMPARISON: None. FINDINGS: Bones/labrum/cartilage: Alignment is normal. No fracture, avascular necrosis or pathologic marrow replacing process. There i s mild partial-thickness cartilage loss with smooth chondral surface and without degenerative subchon dral changes at the posterior aspect of the joint space. Very small shallow tear at the chondral labr al junction at the base of the 10:30 position of the posterior superior left acetabular labrum best a ppreciated on the T2-weighted images. Right hip is not diagnostically evaluated on the larger field-o f-view images however there is evident a more prominent tear at the base of the 12:00-11:00 position of the superolateral right acetabular labrum. Fluid: Mild increased fluid signal overlying the left greater trochanter consistent with mild trochanteric b ursitis. Physiologic amount fluid in the right hip joint. 3.3 x 2.0 x 2.6 cm loculated fluid collecti on at the left side of the introitus below level of the pubic symphysis most consistent with a Bartho adin gland cyst. Minimal likely physiologic free fluid in the pelvis. No other abnormal fluid collecti ons. Soft tissues: Moderate tendinopathy and partial tear at the distal left gluteus minimus tendon with secondary mild asymmetric atrophy of the left gluteus minimus muscle belly relative to the left. There is mild tendi nopathy of the left gluteus medius tendon with small split tear between the anterior third in the pos terior two thirds of the tendon. Mild tendinopathy without tear at the right gluteus medius tendon. T he right gluteus minimus tendon is normal. The bilateral iliopsoas and proximal hamstring tendons are normal. The uterus is not identified and has likely been surgically resected. 2.1 cm left ovarian cyst/follicle. Limited evaluation of visceral organs of the pelvis is otherwise unremarkable. No pa thologically enlarged pelvic/inguinal lymphadenopathy. IMPRESSION: 1. Mild left hip osteoarthritis with small shallow tear at the chondral labral junction at the grinding wheel dresser ior superior left acetabular labrum. 2. Slightly larger labral tear is seen along the chondral labral junction at the superolateral right acetabular labrum on the large [id number] images. 3. Moderate left gluteus minimus tendinopathy with partial thickness tear, likely chronic given the m ild asymmetric atrophy of the left gluteus minimus muscle belly relative to the right. 4. Mild tendinopathy of the bilateral gluteus medius medius tendons with small longitudinal split tea r at the left greater trochanteric insertion of the left gluteus medius tendon and overlying mild lef t trochanteric bursitis. Reviewed, dictated and finalized at location A. YSIS EQUIPMENT TECHNICIAN IMPRESSION: 1. Mild left hip osteoarthritis with small shallow tear at the chondral labral junction at the posterior superior left acetabular labrum. 2. Slightly larger labral tear is seen along the chondral labral junction at th e superolateral right acetabular labrum on the large [id number] images. 3. Moderate left gluteus minimus tendinopathy with partial thickness tear, like ly chronic given the
== END 2022-07-21 08:34 | disposition home or self-care (01) ==
PROVIDERS: Visit Provider Orthopaedic Surgery
DX: G89.29 Other chronic pain (principal); M25.552 Pain in left hip; M16.12 Unilateral primary osteoarthritis, left hip; S73.192A Other sprain of left hip, initial encounter; S76.812A Strain of other specified muscles, fascia and tendons at thigh level, left thigh, initial encounter; M71.552 Other bursitis, not elsewhere classified, left hip
CPT/HCPCS: 20610; 73722; 77002; A9577; Q9966

== ENCOUNTER 2022-09-08 08:03 | Outpatient (RCR) | payer BC, SELFPAY ==
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
== END 2022-09-08 13:23 | disposition home or self-care (01) ==
LOC: ANHPT 08:03
PROVIDERS: PCP Family Medicine
DX: M25.552 Pain in left hip (principal); M70.62 Trochanteric bursitis, left hip
CPT/HCPCS: 97110; 97161

== ENCOUNTER 2023-04-27 16:25 | Emergency (ER) | payer BC, SELFPAY ==
[2023-04-27 16:39] VITALS: BP 154/99; PULSE 79; RESP 16; TEMP 36.8; O2SAT 100
--- NOTE | 2023-04-27 17:13 | ED.URI ---
HPI - URI/Sore Throat General Chief Complaint: Upper Respiratory Infection Stated Complaint: Sore Throat Source: patient and RN notes reviewed Mode of arrival: ambulatory Limitations: no limitations History of Present Illness HPI Narrative: 47-year-old female presented for complaint of headache, body aches, sinus drainage/congestion, and fever blister to right corner of mouth. Onset 4 days.Tested negative for covid 2 days ago. Reports lower lip is burning. Using abreva. Denies known sick contacts but was on vacation at the time of onset. Denies cough, sob, wheezing, n/v/d/f/c. MD elicited complaint: cough Related Data Home Medications Medication Instructions Recorded Confirmed hydroxyzine HCl 25 mg tablet 25 mg PO BID 04/13/23 04/27/23 semaglutide (weight loss) 1.7 2.4 mg subcut WEEKLY 04/13/23 04/27/23 mg/0.75 mL subcutaneous pen injector (Wegovy) Allergies Allergy/AdvReac Type Severity Reaction Status Date / Time Penicillins Allergy Intermediate Rash Verified 04/27/23 16:45 Review of Systems Review of Systems: CONSTITUTIONAL: denies malaise, chills, sweats, fever EYES: Denies visual changes, redness, or discharge ENT: Reports rhinorrhea, congestion, fever blister denies sinus pain, otalgia, sore throat CARDIOVASCULAR: Denies chest pain, palpitations, edema RESPIRATORY: Reports post nasal drainage. Denies dyspnea or cough GASTROINTESTINAL: Denies abdominal pain, nausea, vomiting, diarrhea SKIN: Denies rash or itching MUSCULOSKELETAL: Endorses myalgia NEUROLOGIC: reports headache PMFSH Past Medical History Medical History Chronic left hip pain Cubital tunnel syndrome of both upper extremities GERD (gastroesophageal reflux disease) Postprocedural urinary retention RIVERA (stress urinary incontinence, female) Surgical History Surgical History History of bladder surgery History of elbow surgery History of knee surgery S/P hysterectomy Family History Family History Sibling Family history of hypothyroidism Thyroid disorder Grandparent Cancer Diabetes mellitus Hypertension Heart disease Mother Hypertension Heart disease Thyroid disorder Father Hypertension Social History Social History Smoking status: Never smoker Alcohol intake: current Drinks per week: 4 Alcohol use details: Socially Substance use: never Substance use type: does not use Lack of Transportation: No Lack of Food: Never True Current Housing: I Have Housing Concerned About Future Housing: No Difficulty Paying Gas/Electric Bills: No Difficulty Paying for Meds: No Currently Unemployed: No Education: High School Diploma/GED Difficulty w/ Childcare or Family Care: No Living arrangements: with family Occupation/Education: occupation Additional occupation/education comments: [employer] Spiritual care concerns: Yes (NO BLOOD PRODUCTS) Exam Narrative: GENERAL: well-appearing, nontoxic no acute distress. HEAD: Normocephalic EYES: PERRLA, conjunctivae clear ENT: Mucous membranes moist. Right corner of mouth and middle of lower lip with vesicles c/w herpes labialis; right lesions is crusted; TMs pearly khoury with dull light reflex and clear effusion bilaterally; no tragal tenderness. Oropharynx erythematous without lesions or exudate, no drooling, no hoarseness, no trismus, uvula midline. No tripod positioning, muffled voice, soft palate or pharyngeal wall bulging NECK: Supple. No lymphadenopathy CHEST: Clear to auscultation, breath sounds equal. No wheezing, rhonchi, rales, or stridor. No respiratory distress, speaks in full sentences. HEART: Regular rate and rhythm. SKIN: Warm, dry, no rash. NEURO: Alert and oriented x3. PSYCH: Normal mood and affect
== END 2023-04-27 17:30 | disposition home or self-care (01) ==
PROVIDERS: Emergency Provider Nurse Practitioner Family; PCP Family Medicine
DX: B34.9 Viral infection, unspecified (principal); B00.1 Herpesviral vesicular dermatitis; K21.9 Gastro-esophageal reflux disease without esophagitis
CPT/HCPCS: 87081; 87880; 99213; G0463

== ENCOUNTER 2023-11-11 12:30 | Outpatient (RCR) | payer BC, SELFPAY ==
--- NOTE | 2023-09-09 15:08 | OPREHPOC ---
Outpatient Therapy Plan of Care This is a Multidisciplinary Plan of Care that may contain components documented by all disciplines (PT, OT, and ST.) PT Problem 1 PT Problem #1 Knowledge Deficit PT Goal 1 Goal Pt to be IND with issued HEP Target Visit 8 PT Problem 2 PT Problem #2 Pain PT Goal 1 Goal Pt to report hip pain no greater than 3/10 in the last week Target Visit 8 PT Goal 2 Goal Pt to report 75% improvement in overall symptoms Target Visit 8 PT Problem 3 PT Problem #3 Impaired Range of Motion PT Goal 1 Goal Pt to improve passive L hip ext rot to 50 deg Target Visit 8 PT Problem 4 PT Problem #4 Impaired Strength PT Goal 1 Goal Pt to demonstrate L hip strength equal to R hip strength Target Visit 8 PT Problem 5 PT Problem #5 Impaired Functional Mobil PT Goal 1 Goal Pt to demonstrate a functional floor to stand transfer without UE support Target Visit 8 PT Goal 2 Goal Pt to demonstrate 30lb lift and carry from ground level without compensations.
--- NOTE | 2023-09-09 15:08 | PTOPEVAL1 ---
Assessment and note entered by Dre Hartman, PT, DPT Evaluation Information Assessment Status Evaluation Diagnosis L hip abductor tendon repair Onset 06/11/23 Subjective Information Pt states she had a abductor tendon repair on . She states she was placed in an immobilizer for 12 weeks and just was allowed to remove this last week. She states prior to her surgery she was attending exercises classes, walking, and was very active before. Reported Pain Level Pain Score 0: Self Report Assessment PT Clinical Summary Leeanne presents to therapy today for her initial evaluation following a L hip abductor tendon repair performed on 06/11/23. She has been immobilized for 12 weeks. Today she demonstrates decreased passive L hip motion and L hip strength when compared to her R side. She favors her L side during ambulation, squatting, and other functional tasks. Skilled therapy services are indicated to address the deficits noted above, improve functional mobility, and to return to PLOF without limitations. Plan of Care Interventions Electrical Stimulation,Gait Training,Hot Pack/Cold Pack,Manual Therapy,Neuro Re-education,Patient/ Caregiver Educati,Therapeutic Activities, Therapeutic Exercise PT Services Indicated Yes Treatment Frequency and 2x/wk for 8 visits Duration These treatments will address the objective and functional deficits as defined above. The patient will be advanced safely and appropriately in order for the patient to progress towards his/her prior level of function. Additional exercises will be introduced and as well as a comprehensive home exercise program upon discharge, if needed, ?to ensure carryover of functional gains achieved in the clinic. This treatment plan has been reviewed and agreement upon by the patient.
--- NOTE | 2023-09-11 11:57 | PCPTNOTE ---
Patient canceled due to stomach illness.
--- NOTE | 2023-10-07 14:22 | PTOPPROG ---
Assessment and note entered by Dre Hartman, PT, DPT Evaluation Information Assessment Status Progress Diagnosis L hip abductor tendon repair Onset 06/11/23 Subjective Information Pt states some things are better while other things are still really hard. She states going up and down the stairs is much easier, getting up and down from the ground and putting her shoes on is still difficult. She states she is still limited with how far/long she can walk for. She is still getting mild pain that with occasionally wake her up in the night. Assessment PT Clinical Summary Leeanne presents to therapy today for her progress report following 7 visits of skilled therapy following a L hip abductor tendon repair performed on 06/11/23. Today she demonstrates improving L hip ROM and strength but this is still decreased when compared to her R side. She continue to favors her L side during squatting, with long distance ambulation, and when getting up from the ground. Continuation of skilled therapy services are indicated to continue progressing towards therapy, improve functional mobility, and to return to PLOF without limitations. Plan of Care Interventions Electrical Stimulation,Gait Training,Hot Pack/Cold Pack,Manual Therapy,Neuro Re-education,Patient/ Caregiver Educati,Therapeutic Activities, Therapeutic Exercise PT Services Indicated Yes Treatment Frequency and 1x/wk for 6 visits Duration These treatments will address the objective and functional deficits as defined above. The patient will be advanced safely and appropriately in order for the patient to progress towards his/her prior level of function. Additional exercises will be introduced and as well as a comprehensive home exercise program upon discharge, if needed, ?to ensure carryover of functional gains achieved in the clinic. This treatment plan has been reviewed and agreement upon by the patient.
--- NOTE | 2023-11-04 12:40 | PCPTNOTE ---
Patient called to cancel due to cable fozia still at her house.
--- NOTE | 2023-11-11 13:13 | PTOPDC ---
Assessment and note entered by Dre Hartman, PT, DPT Evaluation Information Assessment Status Discharge Diagnosis L hip abductor tendon repair Onset 06/11/23 Subjective Information Pt states overall she can do whatever she wants. She states she still limps for the first couple of steps after she stands up and still get really sore after exercising. She states the discomfort does not prevent her from trying anything new. She states her flexibility has improved but is still limited compared to the other side. Reported Pain Level Pain Score 0: Self Report Assessment PT Clinical Summary Leeanne presents to therapy today for her progress report following 10 visits of skilled therapy following a L hip abductor tendon repair performed on 06/11/23. Today she demonstrates improving L hip ROM and strength that is now about 80% compared to her R hip. She reports no functional limitations at this time and no longer requires skilled services. She will be discharged at this time with instructions to continue HEP upon discharge. Plan of Care PT Services Indicated No
== END 2023-11-11 16:21 | disposition home or self-care (01) ==
LOC: ANHGOSHPT 12:30
DX: M25.552 Pain in left hip (principal)
CPT/HCPCS: 97110; 97140; 97161; 97530

== ENCOUNTER 2024-06-24 10:54 | Outpatient (CLI) | payer BC, SELFPAY ==
--- NOTE | ~2024-06-24 | MM_ITS ---
EXAMINATION: MM screening fany BI w lauar HISTORY: Screening TECHNIQUE: Craniocaudal and mediolateral oblique 3-D tomosynthesis images were obtained and synthetic 2-D images were generated. CAD analysis was submitted and interpreted. COMPARISON: Comparison to multiple prior studies sequentially, with oldest reviewed study dated 08/18. BREAST PARENCHYMAL COMPOSITION: Not dense: There are scattered areas of fibroglandular density. FINDINGS: There is no evidence of suspicious mass, calcification, or architectural distortion to sugg est malignancy in either breast. There has been no suspicious interval change. IMPRESSION: 1. No mammographic evidence of malignancy. 2. Recommend routine screening mammography in one year. BI-RADS Category 1: Negative Reviewed, dictated and finalized at location B. TER HAND
== END 2024-06-24 10:55 | disposition home or self-care (01) ==
PROVIDERS: PCP Family Medicine; Visit Provider Nurse Practitioner
DX: Z12.31 Encounter for screening mammogram for malignant neoplasm of breast (principal)
CPT/HCPCS: 77063; 77067

== ENCOUNTER 2024-07-25 11:00 | Outpatient (RCR) | payer BC, SELFPAY ==
--- NOTE | 2024-06-16 14:29 | OPREHPOC ---
Outpatient Therapy Plan of Care This is a Multidisciplinary Plan of Care that may contain components documented by all disciplines (PT, OT, and ST.) PT Problem 1 PT Problem #1 Knowledge Deficit PT Goal 1 Goal / Goal Update Pt to be IND with issued HEP Target Visit 6 PT Problem 2 PT Problem #2 Pain PT Goal 1 Goal / Goal Update 1. Pt to report hip pain no greater than 2/10 in the last week. 2. Pt to report no increase in pain when trying to sleep at night. Target Visit 6 PT Problem 3 PT Problem #3 Impaired Range of Motion PT Goal 1 Goal / Goal Update 1. Pt to improve hip ext rot ROM to 50 deg without an increase in pain. Target Visit 6 PT Problem 4 PT Problem #4 Impaired Functional Mobil PT Goal 1 Goal / Goal Update 1. Pt to demonstrate a functional lift and carry of 30lb without an increase in symptoms. Target Visit 6
--- NOTE | 2024-06-16 14:29 | PTOPEVAL1 ---
Assessment and note entered by Dre Hartman, PT, DPT Evaluation Information Assessment Status Evaluation Diagnosis L hip abductor tendon repair ICD-10 Condition Codes (PT) Pain in left hip M25.552 Onset 06/11/23 Subjective Information Pt had an abductor tendon repair a year ago, she states she just had her 1 year check up and her surgeon noted excessive amounts of tightness and weakness in her hip. She states daily things still seem more challenging than they should be, like socks and shoes, getting comfortable at night, and having more pain than it should. Sitting and getting up to stand initially is painful and tight . Reported Pain Level Pain Score 2: Self Report Assessment PT Clinical Summary Pt presents to therapy today for her initial evaluation, she is 1 year post a L hip abductor tendon repair. Her L hip has significant ROM deficits and mild strength deficits when compared to her R hip. She reports difficulty with daily tasks like getting her shows on and has decreased ability to use proper squat mechanics d/t her limited hip rotation ROM. Skilled therapy services are indicated to address the deficits noted above , to manage pain, to improve mobility, and to return to OF. Plan of Care Interventions Electrical Stimulation,Gait Training,Hot Pack/Cold Pack,Manual Therapy,Neuro Re-education,Patient/ Caregiver Educati,Therapeutic Activities, Therapeutic Exercise,Ultrasound PT Services Indicated Yes Treatment Frequency and 1xz/wk for 6 visits Duration These treatments will address the objective and functional deficits as defined above. The patient will be advanced safely and appropriately in order for the patient to progress towards his/her prior level of function. Additional exercises will be introduced and as well as a comprehensive home exercise program upon discharge, if needed, ?to ensure carryover of functional gains achieved in the clinic. This treatment plan has been reviewed and agreement upon by the patient.
--- NOTE | 2024-07-18 10:15 | PCPTNOTE ---
Patient called & cancelled scheduled appointment this date due to not feeling well.
--- NOTE | 2024-07-25 11:53 | PTOPDC ---
Assessment and note entered by Dre Hartman, PT, DPT Evaluation Information Assessment Status Discharge Diagnosis L hip abductor tendon repair ICD-10 Condition Codes (PT) Pain in left hip M25.552 Onset 06/11/23 Subjective Information Pt states she feels like she is doing really well. States she will still occasionally limp if she is walking for a long time. Reported Pain Level Pain Score 0: Self Report Assessment PT Clinical Summary Pt has completed 5 visits of skilled therapy to treat her L hip pain following a tendon repair. Today her strength and ROM have improved to ~80% of her uninvolved side. She continues to demonstrate very mild gait deviations. She has met or progressed well towards all of her therapy goals and no longer requires skilled services. She will be d/c'ed at this time.
== END 2024-07-25 14:47 | disposition home or self-care (01) ==
LOC: ANHGOSHPT 11:00
PROVIDERS: PCP Family Medicine
DX: Z09 Encounter for follow-up examination after completed treatment for conditions other than malignant neoplasm (principal)
CPT/HCPCS: 97110; 97140; 97161; 97530

== ENCOUNTER 2024-10-11 10:04 | Outpatient (CLI) | payer BC, SELFPAY ==
--- OUTSIDE RECORDS SUMMARY | 2024-10-11 11:35 | XMS_ITS | Referral Summary ---
Author Organization [facility] Address [address] [place] [address] Care Team Providers Care Fire Extinguisher Technician Name Role Phone No, Physician Primary Care Provider [phone] Allergies Active Allergy Reactions Criticality Noted Date Comments Penicillin Rash Medium 05/25/2023 Medications omeprazole (PriLOSEC) 20 mg capsule Take 1 capsule (20 mg total) by mouth journeyman electrician pv installer before breakfast Active hydrOXYzine (ATARAX) 25 mg tablet Take 1 tablet (25 mg total) by mouth as needed (sleep) 3 Active Wegovy 2.4 mg/0.75 mL auto-injector Inject 0.75 mL (2.4 mg total) under the skin every 7 days mondays 3 Active Active Problems Problem Noted Date Diagnosed Date Rupture of hip abductor tendon 06/11/2023 Rupture of tendon of hip abductor 03/26/2023 Social History Tobacco Use Types Packs/Day Years Used Date Smoking Tobacco: Never Passive Smoke Exposure: Never Smokeless Tobacco: Never AUDIT-C Answer Date Recorded Q1: How often do you have a drink containing alc ohol? 2-3 times a week 06/11/2023 Q2: How many drinks containi ng alcohol do you have on a typical day when you are drinking? 1 or 2 06/11/2023 Frequency of Binge Drinking Not on file 05/18 Personal Safety Answer Date Recorded Have you ever been in or are you currently in a harmful physical or emotional relationship or is someone making you feel afraid or unsafe? Denies 06/11/2023 Comments No Sex and Gender Information Value Date Recorded Sex Assigned at Not on file Legal Sex Female 2:39 PM HR CLERK Gender Identity Female 09/02/2022 2:07 PM HR CLERK Sexual Orientation Straight 09/02/2022 2: 07 PM HR CLERK Last Filed Vital Signs Vital Sign Reading Time Taken Comments Blood Pressure 144/86 06/12/2023 1:15 PM CDT Pulse 82 06/12/2023 1:15 PM CDT Temperature 36.8 C (98.3 F) 06/12/2023 8:44 AM CDT Respiratory Rate 19 06/12/2023 8:44 AM CDT Oxygen Saturation 100% 06/12/2023 1:15 PM CDT Inhaled Oxygen Concentration - - Weight 79.4 kg (175 lb) 06/11/2023 1:07 PM CDT Height 165.1 cm (5' 5 ) 06/11/2023 1:07 PM CDT Body Mass Index 29.12 06/11/2023 1:07 PM CDT Plan of Treatment Not on file Medical Devices Implanted Type Area Programmer Developer Device Identifier Shelf Expiration Date Model / Serial / Lot [employer] Corkscrew Ii Fiberwire 5.5mm 16.3mm 2 2 Full Thread [place] Suture [id number] - [id number] Implanted:Qty: 1 on 06/11/2023 by Ganesh Martinez MD at [facility] Left: Hip [employer] 12/15/2027 [id number] / / [id number] Description:Implant pause do ne prior to opening Insurance [facility] ACCESS CHOICE ANTHEM ACCESS CHOICE Advance Directives For more information, please contact: [phone] Documents on File Type Date Recorded Patient Salesperson Meats Expl anation ADVANCE DIRECTIVE 05/26/2023 6:21 PM ANDRE R OF ANTHROPOLOGIST-MEDICAL Care Teams Fire Extinguisher Technician Relationship Specialty Start Date End Date No, Physician PCP - General 07/22/22
--- OUTSIDE RECORDS SUMMARY | 2024-10-11 11:35 | XMS_ITS | Clinical Summary ---
Author Organization [facility] Address [address] [place] [address] Care Team Providers Care Local City Driver Name Role Phone No, Physician Primary Care Provider [phone] Allergies Active Allergy Reactions Criticality Noted Date Comments Penicillin Rash Medium 05/25/2023 Medications omeprazole (PriLOSEC) 20 mg capsule Take 1 capsule (20 mg total) by mouth day worker before breakfast Active hydrOXYzine (ATARAX) 25 mg tablet Take 1 tablet (25 mg total) by mouth as needed (sleep) 3 Active Wegovy 2.4 mg/0.75 mL auto-injector Inject 0.75 mL (2.4 mg total) under the skin every 7 days mondays 3 Active Active Problems Problem Noted Date Diagnosed Date Rupture of hip abductor tendon 06/11/2023 Rupture of tendon of hip abductor 03/26/2023 Surgical History Surgery Date Site/Laterality Comments HYSTERECTOMY 08/17/2016 - 08/16/2017 BLADDER SUSPENSION 11/15/2020 - 12/14/2020 DILATION AND CURETTAGE OF UTERUS ELBOW SURGERY Bilateral Lateral Epicondylitis MENISCUS SURGERY Left CARPAL TUNNEL RELEASE Left Medical History Medical History Date Comments Motion sickness Family History Medical History Relation Name Comments Anesthesia problems Neg Hx Social History Tobacco Use Types Packs/Day Years [...] on file Legal Sex Female 2:39 PM SOFTWARE PACKAGER Gender Identity Female 09/02/2022 2:07 PM SOFTWARE PACKAGER Sexual Orientation Straight 09/02/2022 2: 07 PM SOFTWARE PACKAGER Obstetrics History Last Filed Vital Signs Vital Sign Reading [...] 06/11/2023 1:07 PM CDT Plan of Treatment Health Maintenance Due Date Last Done Comments Breast Cancer Screening-Mammogram 1973 Colon Cancer Screening-Colonoscopy 1973 Depression Screening 1973 Hepatitis C Screening 1973 DTaP/Tdap/Td Vaccine (1 - Tdap) 1984 Hepatitis B Screening 1991 Regular Well Visit/Exam 18-64 1991 Zoster Vaccine (1 of 2) 2023 Covid-19 Vaccine (3 - 2023-2 5 season) 2024 10/04/2020, 09/06/2020 Influenza Vaccine (#1) 2024 05/07/2020 Pneumococcal vaccine <65 Aged Out No longer eligible based on patient's age to complete this topic Medical Devices Implanted Type Area Distributed Generation Project Manager Device Identifier Shelf Expiration Date Model / Serial / Lot [employer] Corkscrew Ii Fiberwire 5.5mm 16.3mm 2 2 Full Thread [place] Suture [id number] - [id number] Implanted:Qty: 1 on 06/11/2023 by Ganesh Martinez MD at [facility] Left: Hip [employer] 12/15/2027 [id number] / / [id number] Description:Implant pause do ne prior to opening Insurance [employer] ACCESS CHOICE [employer] ACCESS CHOICE Advance Directives For more information, please contact: [phone] Documents on File Type Date Recorded Patient Inspector And Tester Expl anation ADVANCE DIRECTIVE 05/26/2023 6:21 PM ANDRE R OF DIRECTOR OF SOFTWARE DEVELOPMENT-MEDICAL Care Teams Local City Driver Relationship Specialty Start Date End Date No, Physician PCP - General 07/22/22
[2024-10-11 19:19] LABS: Alanine Aminotransferase 31 U/L (6-35); Albumin Level 4.4 g/dL (3.5-5.1); Alkaline Phosphatase 78 U/L (38-126); Anion Gap 11 mmol/L (4-12); Aspartate Amino Transferase 46 U/L (14-36); Bilirubin,Total 0.6 mg/dL (0.2-1.3); Blood Urea Nitrogen 9 mg/dL (7-17); Calcium 9.5 mg/dL (8.4-10.2); Carbon Dioxide 28 mmol/L (22-30); Chloride 94 mmol/L (98-107); Estimated Glomerular Filt Rate > 60; Glucose 103 mg/dL (65-110); Potassium 4.2 mmol/L (3.4-5.0); Sodium 133 mmol/L (137-145)
[2024-10-11 19:31] LABS: Hematocrit 44.1 % (37.0-47.0); Hemoglobin 14.5 g/dL (12.0-15.0); Mean Corpuscular HGB Conc 32.9 g/dl (32-36); Mean Corpuscular Hemoglobin 31.7 pg (26-34); Mean Corpuscular Volume 96.3 fl (80-100); Mean Platelet Volume 10.5 fl (7.4-10.4); Platelet Count Result 206 k/mm3 (150-375); Red Blood Count 4.58 M/mm3 (4.2-5.4); Red Cell Distribution Width 12.2 % (11.5-14.5); White Blood Count 5.1 K/mm3 (4.5-10.0)
== END 2024-10-11 10:05 | disposition home or self-care (01) ==
LOC: ANHGOSHLAB 10:05
PROVIDERS: PCP Family Medicine; Visit Provider Family Medicine
DX: Z79.899 Other long term (current) drug therapy (principal)
CPT/HCPCS: 36415; 80053; 85027

== ENCOUNTER 2024-10-11 13:57 | Outpatient (CLI) | payer BC, SELFPAY ==
--- NOTE | ~2024-10-11 | US_ITS ---
EXAM: ABDOMEN ULTRASOUND HISTORY: R10.33 - Periumbilical pain . Right lower quadrant pain and fever (as patient explained to t fish technologist). COMPARISON: None FINDINGS: LIVER: The liver is unremarkable in echogenicity and size. The portal vein is patent demonstrating hepatopedal flow. GALLBLADDER: No stones are identified within the gallbladder, which is distended and otherwise unrema rkable. No gallbladder wall thickening or pericholecystic fluid. BILE DUCTS: Common bile duct measures 4.3mm. PANCREAS: Limited evaluation of the pancreas secondary to overlying bowel gas SPLEEN: Subcentimeter anechoic focus within the body of the spleen, representing a cyst. The remainder spleen is otherwise unremarkable in echogenicity and size measuring 9.2cm in longitudin al dimension. RIGHT KIDNEY: 12.1 cm. In length. No hydronephrosis or bulky renal calculi. LEFT KIDNEY: 11.2cm in length. No hydronephrosis or renal calculi. VASCULATURE : The abdominal aorta is nonaneurysmal. The IVC is patent. IMPRESSION: Evaluation of the pancreas is limited by overlying bowel gas. Within the area of clinical concern (the right lower quadrant) is an indeterminate focus of decreased echogenicity with adjacent dirty shadowing suggesting bowel gas. Cross-sectional imaging (contrast-e nhanced CT examination of the abdomen and pelvis) is suggested for further evaluation. Reviewed, dictated and finalized at location A. CAR OPERATOR IMPRESSION: Evaluation of the pancreas is limited by overlying bowel gas. Within the area of clinical concern (the right lower quadrant) is an indetermin ate focus of decreased echogenicity with adjacent dirty shadowing suggesting dennis wel gas. Cross-sectional imaging (contrast-enhanced CT examination of the abdom en and pelvis) is suggested for further evaluation.
== END 2024-10-11 13:58 | disposition home or self-care (01) ==
LOC: GOSHIMG 13:58
PROVIDERS: PCP Family Medicine; Visit Provider Family Medicine
DX: R93.5 Abnormal findings on diagnostic imaging of other abdominal regions, including retroperitoneum (principal); R14.0 Abdominal distension (gaseous)
CPT/HCPCS: 76700

== ENCOUNTER 2024-10-13 09:46 | Outpatient (CLI) | payer BC, SELFPAY | END 2024-10-13 09:47 | disposition home or self-care (01) | LOC: MICIMG 09:47 | PROVIDERS: PCP Family Medicine; Visit Provider Family Medicine | DX: R22.2 Localized swelling, mass and lump, trunk (principal); R10.33 Periumbilical pain; R10.31 Right lower quadrant pain; R50.9 Fever, unspecified | CPT/HCPCS: 74176 ==